=== PATIENT | female | born 1995 | race Caucasian/White ===

== ENCOUNTER 2018-05-20 09:14 | Emergency (ER) | payer BC ==
[~2018-05-20] VITALS: Ht 165.1 cm; Wt 136.4 kg
[2018-05-20 09:18] VITALS: BP 146/89; TEMP 100.4
[2018-05-20] MEDS ORDERED: DULERA1 ARO IH (09:22)
[2018-05-20] MEDS ORDERED: SINGULAIR 110 MG/TAB PO (09:22)
[2018-05-20 10:25] LABS: HEMATOCRIT 40.3 % (35.0-45.0); HEMOGLOBIN 13.1 g/dl (12.0-15.0); MEAN CELL VOLUME 86 fl (80.0-95.0); MEAN CORPUSCULAR HEMOGLOBIN 28 pg (26.0-32.0); MEAN CORPUSCULAR HGB CONC 33 g/dl (33.0-37.0); PLATELET COUNT 192 K/mm3 (130-400); RED BLOOD COUNT 4.68 M/mm3 (4.10-5.30); REDCELL DISTRIBUTION WIDTH-CV 12.7 % (11.5-14.5)
[2018-05-20 10:40] LABS: ALBUMIN 3.8 gm/dL (3.5-5.0); BILIRUBIN,TOTAL 0.7 mg/dL (0.0-1.0); CALCIUM 8.7 mg/dL (8.4-10.2); CREATININE, serum 0.82 mg/dL (0.52-1.25); POTASSIUM 3.7 mmol/L (3.4-5.0); TOTAL PROTEIN 7.2 gm/dL (6.4-8.2); URIC ACID 5.4 mg/dL (2.5-6.2)
[2018-05-20 10:52] LABS: C-REACTIVE PROTEIN 18.6 mg/dL (0.0-0.9)
[2018-05-20 11:30] LABS: BAND 9 % (0-10); LYMPHOCYTE 6 % (20.0-51.0); MYELOCYTE 1 % (0-0); NEUTROPHILS 76 % (42.0-75.2)
[2018-05-20 11:31] LABS: PLATELET ESTIMATE NORMAL (NORMAL)
[2018-05-20 12:00] LABS: ERYTHROCYTE SEDIMENTATION RATE 15 mm/hr (0-20)
[2018-05-20] MEDS ORDERED: CEPHALEXIN500 M1 PO (12:28)
[2018-05-20] MEDS ORDERED: DOXYCYCLINE 10100 MG PO (12:28)
[2018-05-20 12:38] VITALS: PULSE 99
== END 2018-05-20 12:38 | disposition home or self-care (01) ==
LOC: COL.ER 09:14
PROVIDERS: Nurse Practitioner
DX: M25.471 Effusion, right ankle (principal); L03.115 Cellulitis of right lower limb; J45.909 Unspecified asthma, uncomplicated; Z87.2 Personal history of diseases of the skin and subcutaneous tissue

== ENCOUNTER 2018-05-28 11:38 | Inpatient (IN) | payer BC ==
[~2018-05-28] VITALS: Ht 165.1 cm; Wt 135.3 kg
[~2018-05-28 11:38] MED LIST: CEPHALEXIN500 M1 PO; DOXYCYCLINE 10100 MG PO; DULERA1 ARO IH; SINGULAIR 110 MG/TAB PO
[2018-05-28] MEDS ORDERED: MOBIC15 MG PO (12:28)
[2018-05-28] MEDS ORDERED: NORCO 325 MG-51 TAB PO (12:32)
[2018-05-28 13:33] LABS: BASO % 0.5 % (0.0-2.0); EOS # 0.1 (0.0-0.7); EOS % 0.7 % (0-4.0); GRAN # 5.1 (1.4-6.5); GRAN % 67.2 % (42.2-75.2); HEMATOCRIT 38.3 % (35.0-45.0); HEMOGLOBIN 12.3 g/dl (12.0-15.0); LYMPH # 1.8 (1.2-3.4); LYMPH % 23.6 % (20.0-51.0); MEAN CELL VOLUME 87 fl (80.0-95.0); MEAN CORPUSCULAR HEMOGLOBIN 28 pg (26.0-32.0); MEAN CORPUSCULAR HGB CONC 32 g/dl (33.0-37.0); MEAN PLATELET VOLUME 11.5 fl (7.4-10.4); MONO # 0.6 (0.1-0.6); MONO % 7.6 % (1.7-9.3); PLATELET COUNT 291 K/mm3 (130-400); RED BLOOD COUNT 4.41 M/mm3 (4.10-5.30); REDCELL DISTRIBUTION WIDTH-CV 11.9 % (11.5-14.5)
[2018-05-28 13:42] LABS: ALBUMIN 3.9 gm/dL (3.5-5.0); BILIRUBIN,TOTAL 0.4 mg/dL (0.0-1.0); CALCIUM 9.4 mg/dL (8.4-10.2); CREATININE, serum 0.75 mg/dL (0.52-1.25); POTASSIUM 4.1 mmol/L (3.4-5.0); TOTAL PROTEIN 7.6 gm/dL (6.4-8.2)
[2018-05-28 14:32] VITALS: BP 148/80; PULSE 72; TEMP 99.3
[2018-05-28 17:02] VITALS: BP 141/81; PULSE 89; TEMP 98.5
[2018-05-28 23:32] VITALS: BP 120/48; PULSE 86; TEMP 98.8
[2018-05-29 05:30] VITALS: BP 104/47; PULSE 67; TEMP 97.6
[2018-05-29 07:25] VITALS: BP 149/83; PULSE 68; TEMP 98.4
[2018-05-29 12:27] VITALS: BP 134/74; PULSE 79; TEMP 98.1
[2018-05-29 16:06] VITALS: BP 133/75; PULSE 85; TEMP 97.7
[2018-05-29 20:00] VITALS: BP 140/80; PULSE 88; TEMP 98.8
[2018-05-30] VITALS: BP 139/78; PULSE 84; TEMP 98.7
[2018-05-30 04:00] VITALS: BP 123/70; PULSE 66; TEMP 97.7
[2018-05-30 08:25] VITALS: BP 145/79; PULSE 90; TEMP 98.1
[2018-05-30] MEDS ORDERED: TRIAMCINOLONE AC0.13 TOP (11:29)
[2018-05-30] MEDS ORDERED: BACTRIM DS 8001 TAB PO (11:30)
[2018-05-30] MEDS ORDERED: CLEOCIN HCL300 MG PO (11:30)
[2018-05-30 12:26] VITALS: BP 135/70; PULSE 84; TEMP 97.1
== END 2018-05-30 17:05 | disposition home or self-care (01) | DRG 603 ==
LOC: SURG 11:38
PROVIDERS: Physician Assistant
DX: L03.115 Cellulitis of right lower limb (principal); J45.909 Unspecified asthma, uncomplicated; L40.0 Psoriasis vulgaris
CPT/HCPCS: J0696; J1650; J3370; J7040; J7050

== ENCOUNTER 2019-05-30 14:22 | Inpatient (IN) | payer BC ==
[~2019-05-30] VITALS: Ht 167.6 cm; Wt 148.5 kg
[~2019-05-30 14:22] MED LIST changes: +BACTRIM DS 8001 TAB PO; +CLEOCIN HCL300 MG PO; +DULERA1 AR1 IH; -DULERA1 ARO IH; +MOBIC15 MG PO; +NORCO 325 MG-51 TAB PO; +TRIAMCINOLONE AC0.13 TOP
[2019-05-30 16:04] LABS: HEMATOCRIT 40.6 % (37.0-47.0); HEMOGLOBIN 13.4 g/dl (12.5-16.0); MEAN CELL VOLUME 87 fl (80.0-100.0); MEAN CORPUSCULAR HEMOGLOBIN 29 pg (27.0-31.0); MEAN CORPUSCULAR HGB CONC 33 g/dl (33.0-37.0); MEAN PLATELET VOLUME 12.7 fl (7.4-10.4); PLATELET COUNT 164 K/mm3 (130-400); RED BLOOD COUNT 4.69 M/mm3 (4.10-5.30); REDCELL DISTRIBUTION WIDTH-CV 12.9 % (11.5-14.5)
[2019-05-30 16:19] LABS: ALBUMIN 4.1 gm/dL (3.5-5.0); BILIRUBIN,TOTAL 0.5 mg/dL (0.0-1.0); CALCIUM 8.9 mg/dL (8.4-10.2); CREATININE, serum 0.8 (0.52-1.25); POTASSIUM 3.2 mmol/L (3.4-5.0); TOTAL PROTEIN 7.5 gm/dL (6.4-8.2)
[2019-05-30 16:37] LABS: BAND 16 % (0-10); LYMPHOCYTE 9 % (20.0-51.0); NEUTROPHILS 70 % (42.0-75.2)
[2019-05-30 16:39] LABS: PLATELET ESTIMATE NORMAL (NORMAL)
[2019-05-30 16:52] LABS: C-REACTIVE PROTEIN 33.1 mg/dL (0.0-0.9)
[2019-05-30 17:10] LABS: ERYTHROCYTE SEDIMENTATION RATE 37 mm/hr (0-20)
[2019-05-30] MEDS ORDERED: PROAIR HFA0.09 MG/AC IH (17:23)
[2019-05-30 17:46] VITALS: BP 120/57; PULSE 87; TEMP 99
[2019-05-30 19:02] VITALS: BP 118/57; PULSE 96; TEMP 99
--- NOTE | 2019-05-30 19:13 | NUR ---
Admission assessment completed, alert/oriented, vital signs stable, reports mild right leg pain, redness is outline for monitoring, Vanco infusing, IVF infusing, notified hospitalist of arrival, meds/allergies/pharmacy reviewed, mother present, denies other needs at this time
--- NOTE | 2019-05-30 20:30 | NUR ---
Initial shift assessment done- denies pain, RLE with redness, warmth, edema- redness is marked- lots of friends visiting- VSS, IV fluids of NS at 125cc/hr
[2019-05-31] VITALS (7 sets, daily range): BP systolic 115–143; BP diastolic 51–74; PULSE 87–105; TEMP 97.9–101.5
--- NOTE | 2019-05-31 07:00 | NUR ---
Did sleep fair during the night- no change to the right lower leg-remains red/warm,edematous. Did have temp 101.5-tylenol was given, down to 100.6
--- NOTE | 2019-05-31 08:07 | NUR ---
Pt alert and oriented. Pt rates pain 6/10 in RLE and headache and ears ache. Pt pain managed with PRN Tylenol. Pt IV in left hand patent no redness or infiltration noted. Pt remains on abx and fluids as ordered. Pt RLE remains reddned and edematous but does not seem to be increasing per intitial markings. Pt has call light in reach.
--- NOTE | 2019-05-31 10:00 | NUR ---
PT TOOK OWN HOME MED @ 1000
--- NOTE | 2019-05-31 11:32 | NUR ---
Family was present. I visited with the patient and family, provided spiritual care, and prayed with them.
[2019-05-31 11:57] LABS: MEAN CELL VOLUME 87 fl (80.0-100.0); MEAN CORPUSCULAR HGB CONC 33 g/dl (33.0-37.0); MEAN PLATELET VOLUME 12.7 fl (7.4-10.4); PLATELET COUNT 159 K/mm3 (130-400); RED BLOOD COUNT 3.98 M/mm3 (4.10-5.30); REDCELL DISTRIBUTION WIDTH-CV 13.2 % (11.5-14.5)
[2019-05-31 12:08] LABS: CALCIUM 8.2 mg/dL (8.4-10.2); CREATININE, serum 0.62 (0.52-1.25); HEMATOCRIT 34.8 % (37.0-47.0); HEMOGLOBIN 11.3 g/dl (12.5-16.0); MEAN CORPUSCULAR HEMOGLOBIN 28 pg (27.0-31.0); POTASSIUM 3.7 mmol/L (3.4-5.0)
[2019-05-31 12:25] LABS: BAND 4 % (0-10); LYMPHOCYTE 19 % (20.0-51.0); NEUTROPHILS 65 % (42.0-75.2); PLATELET ESTIMATE NORMAL (NORMAL)
--- NOTE | 2019-05-31 14:18 | NUR ---
Plan: TO return home with Roommate as care support and Mother Romi as EMR contact. DPOA is also mom. Assess: SW's met with patient at bedside. Patient gave permission to talk infront of guest in room. Patient reports that she does not have a PCP but uses [facility] and Dr. Evans. Patient reports a planned follow-up. Patient obtained medications from [facility] without issues. Patient reports that use of Nebulizer both inhaler and machine as PRN. Patient denies having any other DME. Patient reports that she is able to transport herself generally but mother will transport home. Patient denies having any care concerns at this time. Action: No addtional needs are identifed. SW educated community resources available to her. Nothing follows.
--- NOTE | 2019-05-31 16:23 | NUR ---
Pt pain managed with PRN Motrin and Tylenol. RLE remains reddened and edema noted. Pt eating and getting up to bathroom on her own at this time. Pt has call light in reach and IV patent with no redness or infiltration. Pt denies needs at this time. Pt has family and friends in to see her this afternoon.
--- NOTE | 2019-05-31 19:10 | NUR ---
Pt report given to Priscila RICHARDSON
--- NOTE | 2019-05-31 21:32 | NUR ---
PT IN BED WITH HOB AT 45 DEGREE ANGLE, A/O X4, C/O PAIN IN RLE ABOUT 6/10 THAT IS SHARP. RLE IS RED, SWOLLEN, WARM TO TOUCH, AND TENDER TO TOUCH. NO CHANGE IN MARKING ON RLE. PT GIVEN MOTRIN FOR PAIN REQUESTED. NO OTHER NEEDS CALL LIGHT WITHIN REACH.
[2019-06-01 03:54] VITALS: BP 127/57; PULSE 87; TEMP 98.5
--- NOTE | 2019-06-01 05:22 | NUR ---
UNEVENTFUL NIGHT FOR PT. PT HAS BEEN RESTING/SLEEPING AND EASILY AWAKENS. PT DENIED ANY PAIN OR DISCOMFORT THROUGHOUT THE NIGHT. PT HAS NO NEEDS AND CALL LIGHT WITHIN REACH.
[2019-06-01 08:01] VITALS: BP 141/67; PULSE 99; TEMP 98
[2019-06-01 10:16] LABS: BASO % 0.5 % (0.0-2.0); EOS % 0.5 % (0-4.0); GRAN # 4.4 (1.4-6.5); HEMOGLOBIN 11.2 g/dl (12.5-16.0); LYMPH # 1.5 (1.2-3.4); MEAN CELL VOLUME 88 fl (80.0-100.0); MEAN CORPUSCULAR HEMOGLOBIN 28 pg (27.0-31.0); MEAN CORPUSCULAR HGB CONC 32 g/dl (33.0-37.0); MEAN PLATELET VOLUME 12.4 fl (7.4-10.4); MONO # 0.4 (0.1-0.6); MONO % 6.8 % (1.7-9.3); PLATELET COUNT 181 K/mm3 (130-400); RED BLOOD COUNT 3.96 M/mm3 (4.10-5.30); REDCELL DISTRIBUTION WIDTH-CV 13.3 % (11.5-14.5)
[2019-06-01 10:19] LABS: HEMATOCRIT 34.9 % (37.0-47.0)
--- NOTE | 2019-06-01 10:32 | NUR ---
Pt resting in bed with mom at bedside. Pt RLE remains reddened but looks to have decreased some today but remains 3+ edema. Pt pain managed with PRN Motrin. Pt eating and drinking without issue. Pt has call light in reach and denies needs at this time.
[2019-06-01 10:34] LABS: CALCIUM 8.7 mg/dL (8.4-10.2); CREATININE, serum 0.67 (0.52-1.25); POTASSIUM 3.6 mmol/L (3.4-5.0)
[2019-06-01 12:19] VITALS: BP 153/76; PULSE 95; TEMP 99.3
--- NOTE | 2019-06-01 15:44 | NUR ---
Pt stable this afternoon. Pt has pain in RLE rated at 3/10 this afternoon. Pt has mom at bedside. Pt RLE remains red,warm, and tender to touch but redness is decreasing. Pt has call light in reach. Pt also able to take a shower this afternoon. Pt denies further needs at this time.
[2019-06-01 18:05] VITALS: BP 142/97; PULSE 99; TEMP 98.9
--- NOTE | 2019-06-01 19:10 | NUR ---
Pt report received from Keshia. Pt resting in bed with visitor at bedside. Dinner tray came at this time. Let assessed with off going nurse. Pt reports pain a 3/10. No requests at this time.
--- NOTE | 2019-06-01 19:19 | NUR ---
Pt report given to Lelo RICHARDSON.
[2019-06-01 20:33] VITALS: BP 142/71; PULSE 103; TEMP 100.4
[2019-06-01 22:47] VITALS: TEMP 99.5
[2019-06-02 00:30] VITALS: BP 113/49; PULSE 95; TEMP 98.2
[2019-06-02 03:45] VITALS: BP 133/74; PULSE 83; TEMP 98.3
--- NOTE | 2019-06-02 07:00 | NUR ---
Report received from Fannie Lind. Pt in bed resting, feeling well, will continue to monitor.
--- NOTE | 2019-06-02 07:15 | NUR ---
Report provided to Cynthia. Pt resting in bed at this time. Legs assessed.
[2019-06-02 07:29] VITALS: BP 137/85; PULSE 102; TEMP 99.1
--- NOTE | 2019-06-02 08:00 | NUR ---
Assessment charted. Pt RLE is reddenned, warm and tender, pt states the foot used to be similar color and warmth but has improved greatly. pt states pain is completely gone in RLE. IV went bad last night and does not want a new IV unless advised by doctor. will await hospitalist rounding. Will continue to monitor.
[2019-06-02 12:24] VITALS: BP 148/80; PULSE 98; TEMP 100.4
[2019-06-02 16:12] VITALS: BP 155/74; PULSE 95; TEMP 100.3
--- NOTE | 2019-06-02 18:33 | NUR ---
Pt doing well. Resting in bed, denies needs, will give bedside shift report to nightshift nurse who will resume care.
[2019-06-02 19:40] VITALS: BP 108/46; PULSE 100; TEMP 98
[2019-06-03 03:54] VITALS: BP 105/55; PULSE 97; TEMP 100.7
--- NOTE | 2019-06-03 04:10 | NUR ---
Patient has been resting well. Denies pain. Had her keep her leg elevated on pillows to help with edema. She has a slight temp at 100.7, she had a few today that have been in the same range. Tylenol given. There is also a couple areas to the back of her right calf that have become dark red almost purple in color. Notified A Nikolas SIMPSONN. No other changes at this time. Call light within reach.
[2019-06-03 07:18] LABS: BASO % 0.4 % (0.0-2.0); EOS % 0.2 % (0-4.0); GRAN # 5.1 (1.4-6.5); GRAN % 59.8 % (42.2-75.2); HEMOGLOBIN 11.6 g/dl (12.5-16.0); LYMPH # 2.4 (1.2-3.4); LYMPH % 28.1 % (20.0-51.0); MEAN CELL VOLUME 87 fl (80.0-100.0); MEAN CORPUSCULAR HEMOGLOBIN 28 pg (27.0-31.0); MEAN CORPUSCULAR HGB CONC 32 g/dl (33.0-37.0); MEAN PLATELET VOLUME 11.7 fl (7.4-10.4); MONO # 0.9 (0.1-0.6); MONO % 10.8 % (1.7-9.3); PLATELET COUNT 256 K/mm3 (130-400); RED BLOOD COUNT 4.13 M/mm3 (4.10-5.30)
[2019-06-03 07:27] LABS: HEMATOCRIT 35.8 % (37.0-47.0)
[2019-06-03 07:32] LABS: CALCIUM 8.8 mg/dL (8.4-10.2); CREATININE, serum 0.64 (0.52-1.25); POTASSIUM 3.7 mmol/L (3.4-5.0)
[2019-06-03 08:02] VITALS: BP 139/73; PULSE 92; TEMP 98.2
[2019-06-03 11:00] VITALS: BP 135/73; PULSE 90; TEMP 98.1
--- NOTE | 2019-06-03 11:05 | NUR ---
Pt assessment completed and charted. Medication adminsitered per NOV. Pt A&O. Denies chest pain, dizziness, SOB, N/V, general pain. Per pt RLE has improved since last night. RLE noted to be red, mild edema some blistering, no open sores. Medial RLE noted to have redness that increased in color, per pt and report, became purple overnight. Pt voices no other concerns at this time. pt has no IV at this time, staff and AIV attempted to find site yesterday without success. Will discuss POC with hospitalist.
[2019-06-03] MEDS ORDERED: CEPHALEXIN500 M1 PO (12:38)
[2019-06-03] MEDS ORDERED: TYLENOL 325MG325 MG PO (12:39)
--- NOTE | 2019-06-03 14:30 | NUR ---
Pt discharge instructions discussed and reviewed with patient who verbalized understanding. No other concerns at this time. No IV to dc. Pt escorted out ambulatory by raeann Frederick.
== END 2019-06-03 14:30 | disposition home or self-care (01) | DRG 872 ==
LOC: COL.ER 14:22 → MEDICAL 15:07
PROVIDERS: Emergency Medicine; Physician Assistant; ADMIT Student in an Organized Health Care Education/Training Program
DX: A41.9 Sepsis, unspecified organism (principal); L03.115 Cellulitis of right lower limb; I87.2 Venous insufficiency (chronic) (peripheral); R03.0 Elevated blood-pressure reading, without diagnosis of hypertension; J45.909 Unspecified asthma, uncomplicated; L40.9 Psoriasis, unspecified
CPT/HCPCS: 99232-AI; 99233-AI; 99239; A4216; J0696; J1650; J3370; J7030; J7050

== ENCOUNTER 2019-07-22 12:10 | Inpatient (IN) | payer BC ==
[~2019-07-22] VITALS: Ht 167.6 cm; Wt 128.7 kg
[~2019-07-22 12:10] MED LIST changes: +PROAIR HFA0.09 MG/AC IH; +TYLENOL 325MG325 MG PO
[2019-07-22] MEDS ORDERED: MOTRIN 200200 MG/TAB PO (15:17)
[2019-07-22] MEDS ORDERED: HCTZ 25MG TAB25 MG PO (15:19)
--- NOTE | 2019-07-22 16:59 | NUR ---
Pt arrived to room 319 from ED. PICC to right upper arm placed by FRANK Robles. Pt is awake and A/Ox4, sitting up in bed. Cellulitis to LLE noted. Pt oriented to room and to staff, expressed understanding. Meds/allergies/pharm reviewed. Family at bedside.
[2019-07-22 17:10] VITALS: BP 116/58; PULSE 102; TEMP 99.6
[2019-07-22 17:13] VITALS: BP 116/58; PULSE 105; TEMP 99.2
--- NOTE | 2019-07-22 18:37 | NUR ---
Pt requested PRN tylenol for "feeling like her fever is coming back." Temp 99.1 orally at this time.
[2019-07-22 18:38] VITALS: TEMP 99.1
--- NOTE | 2019-07-22 20:00 | NUR ---
Report received. Assumed care for nutrition and dietetics instructor. A&Ox3. Assessment complete. Noted to have left lower extremity with redness, swelling, and warmth. increased in size from previous marking-increased area marked. Rating pain 3/10 to that area-described as ache with intermittent sharpness. Denies need for intervention. Denies nausea. Provided with pillow to elevate extremity. PICC line to right upper arm-NS@125ml/hr. Mother at bedside. Denies needs. Call light in reach. Bed in low/wheels locked. WIll monitor.
[2019-07-22 20:29] VITALS: BP 129/66; PULSE 110; TEMP 102.8
[2019-07-22 23:54] VITALS: BP 128/58; PULSE 105; TEMP 99.7
[2019-07-23 05:02] VITALS: BP 120/64; PULSE 96; TEMP 98.8
[2019-07-23 06:26] LABS: HEMATOCRIT 38.6 % (37.0-47.0); HEMOGLOBIN 12.2 g/dl (12.5-16.0); MEAN CELL VOLUME 87 fl (80.0-100.0); MEAN CORPUSCULAR HEMOGLOBIN 28 pg (27.0-31.0); MEAN CORPUSCULAR HGB CONC 32 g/dl (33.0-37.0); MEAN PLATELET VOLUME 12.8 fl (7.4-10.4); PLATELET COUNT 148 K/mm3 (130-400); RED BLOOD COUNT 4.44 M/mm3 (4.10-5.30); REDCELL DISTRIBUTION WIDTH-CV 13.6 % (11.5-14.5)
[2019-07-23 06:38] LABS: ALBUMIN 3.5 gm/dL (3.5-5.0); BILIRUBIN,TOTAL 0.6 mg/dL (0.0-1.0); CALCIUM 8.2 mg/dL (8.4-10.2); CREATININE, serum 0.63 (0.52-1.25); TOTAL PROTEIN 6.5 gm/dL (6.4-8.2)
[2019-07-23 06:59] LABS: POTASSIUM 2.8 mmol/L (3.4-5.0)
--- NOTE | 2019-07-23 07:00 | NUR ---
Bedside shift report received from DEBRA Spencer. pT in bed resting, reviewed line drawing on legs. Per night shift manager it is improving. Pt feeling well, resting in room with mom at bedside, will continue to monitor.
[2019-07-23 07:06] LABS: BAND 22 % (0-10); LYMPHOCYTE 14 % (20.0-51.0); NEUTROPHILS 64 % (42.0-75.2)
[2019-07-23 07:07] LABS: PLATELET ESTIMATE NORMAL (NORMAL)
[2019-07-23 08:17] VITALS: BP 134/67; PULSE 107; TEMP 101.6
--- NOTE | 2019-07-23 08:30 | NUR ---
Assessment charted, doing well, c/o chills and feelign cold. VS catpured, pt is febrile, tylenol and motrin provided. PRN pain meds given for pain at 5/10 to LLE. PICC to TAYE. Denies other needs, will continue to monitor.
--- NOTE | 2019-07-23 08:58 | NUR ---
ELBERT met with the patient and the patient's mother, Wendi (ph#[phone]), to discuss discharge plan. The patient is from [place], but lives in [place] with a roommate during the school year. 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 ELBERT contacted and notified Юлия at [employer]'s Office of Student Life of the patient's hospitalization. The patient reports independence with ADLs and does not have any DME. She receives primary care at [facility] and she obtains her medications at [facility]. She reports no difficulties obtaining her meds. The patient's next-of-kin is her mother. The patient plans to return home with her roommate upon discharge. No additional needs at this time.
[2019-07-23 11:02] VITALS: BP 125/69; PULSE 102; TEMP 99.9
--- NOTE | 2019-07-23 11:22 | NUR ---
Vancomycin Initial Dosing Pharmacy Note Ordering provider: Jac Jiang MD Indication/duration: CELLULITIS Relevant comorbidities: LABS: 125KG SCR 0.6 Recommendation: 2 GM Q8H Loading dose: 2 grams Maintenance dose: Trough goal: 10-15 ug/mL
--- NOTE | 2019-07-23 12:04 | NUR ---
Initial visit; Patient thanked Oracle Technical Architect for looking in on her and offering God's blessings.
[2019-07-23 15:57] VITALS: BP 134/74; PULSE 94; TEMP 98.8
--- NOTE | 2019-07-23 18:21 | NUR ---
Pt doing well. talked with Ca today and sent pictures to him with her permission. She is feeling well, afebrile since this afternoon. Denies needs, up in shower now with family at bedside. Will give bedside shift report to nightshift nurse who will resume care.
[2019-07-23 19:41] VITALS: BP 131/68; PULSE 106; TEMP 98.9
--- NOTE | 2019-07-23 20:15 | NUR ---
Patient assessed at this time. Alert and oriented x 4, and able to make needs known. Reported level 7 pain to LLE, described as burning/tight. Given PRN Ultram for pain as requested. Double lumen PICC to RUE. Potassium infusing per protocol. Vanc started per orders. Dressing to area is CDI. LS CTA in upper lobes, diminished in lower lobes. HRR. Capillary refill less than 3 seconds. Non-tenting skin turgor. BSAx4. Abdomen soft and non-tender. 2+ edema BLE. LLE with redness/warmth/pain. Remains in the markings as this time. Marking placed around very red/blister like area to left medial ankle. Cracks to feet. Voices no questions, needs, or concerns at this time. Resting in bed watching TV at this time. Call light is within reach.
--- NOTE | 2019-07-23 22:00 | NUR ---
Patient requested PRN pain medication for LLE. Pain rated as a 7. Given PRN Roxicodone. Also complaining of chills. Temp 99.9. Given PRN Motrin. Voices no other questions, needs, or concerns at this time. Call light is within reach.
[2019-07-23 23:37] VITALS: BP 130/67; PULSE 108; TEMP 97.6
[2019-07-24 03:54] VITALS: BP 135/64; PULSE 105; TEMP 98.6
[2019-07-24 06:00] LABS: HEMOGLOBIN 10.9 g/dl (12.5-16.0); MEAN CELL VOLUME 87 fl (80.0-100.0); MEAN CORPUSCULAR HEMOGLOBIN 27 pg (27.0-31.0); MEAN CORPUSCULAR HGB CONC 31 g/dl (33.0-37.0); MEAN PLATELET VOLUME 12.7 fl (7.4-10.4); PLATELET COUNT 136 K/mm3 (130-400)
--- NOTE | 2019-07-24 06:00 | NUR ---
Patient has denied needing any further pain medication this shift. Continues on IV antibiotics via PICC to RUE per orders. LLE continues to be red and warm to touch. Staying within drawn border. Voices no questions, needs, or concerns at this time. Resting in bed with call light within reach.
[2019-07-24 06:01] LABS: HEMATOCRIT 34.9 % (37.0-47.0)
[2019-07-24 06:14] LABS: CALCIUM 8.3 mg/dL (8.4-10.2); CREATININE, serum 0.61 (0.52-1.25); POTASSIUM 3.4 mmol/L (3.4-5.0)
[2019-07-24 06:28] LABS: C-REACTIVE PROTEIN 26.1 mg/dL (0.0-0.9)
[2019-07-24 07:48] VITALS: BP 111/63; PULSE 106; TEMP 98.5
[2019-07-24 07:48] LABS: BAND 17 % (0-10); LYMPHOCYTE 16 % (20.0-51.0); NEUTROPHILS 56 % (42.0-75.2); PLATELET ESTIMATE NORMAL (NORMAL)
--- NOTE | 2019-07-24 10:32 | NUR ---
Pt awake and alert upon entry, family in room, pain medications asked for and were given, no other complaints at this time, shift assessments complete, left leg assessed redness still within the marked area, left Pt call light in reach, bed in lowest position.
[2019-07-24 11:53] VITALS: BP 114/66; PULSE 106; TEMP 99.6
[2019-07-24 15:45] VITALS: BP 129/69; PULSE 101; TEMP 100.9
--- NOTE | 2019-07-24 18:23 | NUR ---
Pt resitng in the room today, has some C/O pain and medications were given for relief, left lower leg cellulitis has remained in the previously marked area, Vs have remained stable.
[2019-07-24 19:19] VITALS: BP 131/74; PULSE 92; TEMP 98.5
--- NOTE | 2019-07-24 19:45 | NUR ---
Patient assessed at this time. Alert and oriented x 4, and able to make needs known. Double lumen PICC to RUE. Both flush and have good blood return. Vancomycin trough obtained per protocol. Reports level 4 pain to LLE, described as burning. Given PRN Roxicodone as requested for pain. Denies SOB and dyspnea. LS CTA in upper lobes, diminished in lower lobes. Respirations even and unlabored. HRR. Capillary refill less than 3 seconds. Non-tenting skin turgor. BSAx4. Abdomen soft and non-tender. 3+ edema BLE. Cracks to bilateral heels. Voices no questions, needs, or concerns at this time. Resting in bed watching TV. Call light is within reach.
--- NOTE | 2019-07-24 20:25 | NUR ---
Vanc trouch back 10.08. Started Vancomycin per orders. Reports Roxicodone was effective, and denies pain at this time. In bed watching TV with call light within reach.
[2019-07-24 23:17] VITALS: BP 133/57; PULSE 85; TEMP 98.5
--- NOTE | 2019-07-25 03:40 | NUR ---
Patient requesting PRN Roxicodone for pain to LLE and given as requested. Voices no other questions, needs, or concerns at this time. Resting in bed with call light within reach.
[2019-07-25 03:56] VITALS: BP 118/69; PULSE 102
[2019-07-25 06:00] LABS: BASO % 0.3 % (0.0-2.0); EOS # 0.1 (0.0-0.7); EOS % 0.9 % (0-4.0); GRAN # 4.3 (1.4-6.5); GRAN % 61.7 % (42.2-75.2); HEMOGLOBIN 10.3 g/dl (12.5-16.0); LYMPH # 1.7 (1.2-3.4); LYMPH % 24.5 % (20.0-51.0); MEAN CELL VOLUME 89 fl (80.0-100.0); MEAN CORPUSCULAR HEMOGLOBIN 28 pg (27.0-31.0); MEAN CORPUSCULAR HGB CONC 32 g/dl (33.0-37.0); MEAN PLATELET VOLUME 12.5 fl (7.4-10.4); MONO # 0.9 (0.1-0.6); MONO % 12.2 % (1.7-9.3); PLATELET COUNT 151 K/mm3 (130-400); RED BLOOD COUNT 3.68 M/mm3 (4.10-5.30)
[2019-07-25 06:06] LABS: HEMATOCRIT 32.7 % (37.0-47.0)
--- NOTE | 2019-07-25 06:07 | NUR ---
Patient denies having pain and discomfort at this time. Voices no questions, needs, or concerns at this time. Resting in bed with call light within reach.
[2019-07-25 06:14] LABS: CALCIUM 8.4 mg/dL (8.4-10.2); CREATININE, serum 0.61 (0.52-1.25); POTASSIUM 3.8 mmol/L (3.4-5.0)
[2019-07-25 08:08] VITALS: BP 132/72; PULSE 94; TEMP 98.5
--- NOTE | 2019-07-25 08:08 | NUR ---
Pt awake and alert this morning, talkative, shift assessments complete, left Pt call light in reach, bed in lowest position.
[2019-07-25 11:32] VITALS: BP 124/86; PULSE 92; TEMP 98.3
[2019-07-25 16:23] VITALS: BP 125/62; PULSE 91; TEMP 98.4
--- NOTE | 2019-07-25 18:34 | NUR ---
Pt doing much better today, has litle pain and has not asked for pain medications today, VS have remained stable.
[2019-07-25 19:23] VITALS: BP 125/70; PULSE 104; TEMP 98.6
[2019-07-25 23:16] VITALS: BP 121/61; PULSE 99; TEMP 97.9
[2019-07-26 04:58] VITALS: BP 131/66; PULSE 100; TEMP 99.8
[2019-07-26 06:06] LABS: BASO % 0.4 % (0.0-2.0); EOS # 0.1 (0.0-0.7); EOS % 1.3 % (0-4.0); GRAN # 3.7 (1.4-6.5); HEMOGLOBIN 10.3 g/dl (12.5-16.0); LYMPH # 2.1 (1.2-3.4); LYMPH % 30.2 % (20.0-51.0); MEAN CELL VOLUME 87 fl (80.0-100.0); MEAN CORPUSCULAR HEMOGLOBIN 28 pg (27.0-31.0); MEAN CORPUSCULAR HGB CONC 32 g/dl (33.0-37.0); MEAN PLATELET VOLUME 11.8 fl (7.4-10.4); MONO # 0.9 (0.1-0.6); MONO % 12.8 % (1.7-9.3); PLATELET COUNT 191 K/mm3 (130-400); RED BLOOD COUNT 3.72 M/mm3 (4.10-5.30); REDCELL DISTRIBUTION WIDTH-CV 14.1 % (11.5-14.5)
[2019-07-26 06:13] LABS: HEMATOCRIT 32.5 % (37.0-47.0)
[2019-07-26 06:17] LABS: CALCIUM 8.6 mg/dL (8.4-10.2); CREATININE, serum 0.67 (0.52-1.25)
--- NOTE | 2019-07-26 06:50 | NUR ---
Pt has had an uneventful night. States she slept fair. LLE with 2+ edema and a large, fluid filled blister on inside lower leg just above ankle. There is a couple smaller blisters towards the outer lower edge of leg. PICC in upper right arm. Red line flushes well. Purple line would not flush. Bilat LE elevated on pillow and bottom of bed elevated. Call light in reach.
--- NOTE | 2019-07-26 07:00 | NUR ---
Report received from DEBRA Preito. PT in bed resting with eyes closed, will continue to monitor.
[2019-07-26 07:36] VITALS: BP 137/65; PULSE 98; TEMP 98.9
[2019-07-26] MEDS ORDERED: CEPHALEXIN500 M1 PO (11:37)
[2019-07-26] MEDS ORDERED: MONODOX100 PO (11:38)
--- NOTE | 2019-07-26 13:20 | NUR ---
Discharge teaching completed at this time. PT received discharge packet, discussed need to make f/u at [facility] withing 2 weeks, scripts sent to pharmacy. PICC removed per order, pt tolerated well, pressure held for 5 minutes. Pt left with all belongings, escorted out by medical staff, friend to drive home, criteria met.
== END 2019-07-26 12:55 | disposition home or self-care (01) | DRG 872 ==
LOC: COL.ER 12:10 → MEDICAL 13:32
PROVIDERS: Physician Assistant; ADMIT Student in an Organized Health Care Education/Training Program
PROC: 02HV33Z Insertion of Infusion Device into Superior Vena Cava, Percutaneous Approach (ICD-10-PCS; principal; 2019-07-22)
DX: A41.9 Sepsis, unspecified organism (principal); L03.116 Cellulitis of left lower limb; Z68.42 Body mass index [BMI] 45.0-49.9, adult; J45.909 Unspecified asthma, uncomplicated; I10 Essential (primary) hypertension; L40.9 Psoriasis, unspecified; E66.01 Morbid (severe) obesity due to excess calories; E87.6 Hypokalemia
CPT/HCPCS: 99222-AI; 99232-AI; 99233-AI; C1751; J0692; J0696; J1650; J3370; J3480; J7030; J7040

== ENCOUNTER 2021-09-14 08:46 | Inpatient (IN) | payer BC ==
[~2021-09-14] VITALS: Ht 167.6 cm; Wt 157.7 kg
[2021-09-14] VITALS (14 sets, daily range): BP systolic 116–149; BP diastolic 60–89; PULSE 94–129; TEMP 98.3–98.5
[~2021-09-14 08:46] MED LIST changes: +HCTZ 25MG TAB25 MG PO; +MONODOX100 PO; +MOTRIN 200200 MG/TAB PO
[2021-09-14] MEDS ORDERED: ALBUTEROL0.83 MG/ML IH (09:15)
[2021-09-14 10:18] LABS: BASO % 0.3 % (0.0-2.0); GRAN % 78.9 % (42.2-75.2); HEMATOCRIT 43.8 % (37.0-47.0); HEMOGLOBIN 13.8 g/dl (12.5-16.0); LYMPH # 0.9 K/mm3 (1.2-3.4); LYMPH % 13.3 % (20.0-51.0); MEAN CELL VOLUME 87 fl (80.0-100.0); MEAN CORPUSCULAR HEMOGLOBIN 27 pg (27-31); MEAN CORPUSCULAR HGB CONC 32 g/dl (33.0-37.0); MONO # 0.5 K/mm3 (0.1-0.6); MONO % 7.2 % (1.7-9.3); PLATELET COUNT 175 K/mm3 (130-400); RED BLOOD COUNT 5.06 M/mm3 (4.10-5.30); REDCELL DISTRIBUTION WIDTH-CV 13.3 % (11.5-14.5)
[2021-09-14 10:33] LABS: ALBUMIN 3.6 gm/dL (3.5-5.0); BILIRUBIN,TOTAL 0.6 mg/dL (0.2-1.2); C-REACTIVE PROTEIN 5.21 mg/dL (0.00-0.50); CALCIUM 8.5 mg/dL (8.4-10.2); CREATININE, serum 0.74 mg/dL (0.57-1.11); POTASSIUM 3.5 mmol/L (3.5-4.5); TOTAL PROTEIN 7.4 gm/dL (6.2-8.1)
--- NOTE | 2021-09-14 17:00 | NUR ---
Patient to room 302 from the ED by wheelchair. Nurse oriented the patient to location, room and call light. Patient A&Ox4. VSS. IV CDI. No further needs expressed. Call light within reach
--- NOTE | 2021-09-14 18:43 | NUR ---
Critical D-Dimer of 283 called to AISLINN Solis. New order will be put in for CT r/o PE. Information called to charge nurse, DEBRA Reyes.
--- NOTE | 2021-09-14 19:33 | NUR ---
PT DISCONNECTED FROM IVF @ THIS TIME R/T PREPARING TO GO DOWN TO XRAY, EXPLAINED TO PT. PT VERBALIZES UNDERSTANDING. 2L O2 ON VIA NC. XRAY NOTIFIED THAT PT IS ON OXYGEN ET HAS A PICC LINE.
[2021-09-14 22:46] LABS: CALCIUM 8.2 mg/dL (8.4-10.2); CREATININE, serum 0.64 mg/dL (0.57-1.11); MAGNESIUM 2.3 mg/dL (1.6-2.6); POTASSIUM 3.8 mmol/L (3.5-4.5)
[2021-09-15] VITALS (19 sets, daily range): BP systolic 119–141; BP diastolic 67–79; PULSE 77–113; TEMP 97.7–98.5
--- NOTE | 2021-09-15 04:11 | NUR ---
2029- NOTIFIED BY TELEMETRY THAT PT IS IN A-FIB WITH A HR OF 120-130s. PT IS SITTING IN BED WITH THIS NURSE ENTERS ROOM. O2 ON @ 2L. PT DENIES ANY PRIOR OF HISTORY OF AFIB. PT DENIES CHEST PAIN BUT STATES THAT SHE FEELS LIKE HER HEART IS RACING ET HAS INCREASED SHORTNESS OF BREATH. PT APPEARS CALM. HEART SOUNDS ARE TACHYCARDIC ET IRREGULAR. VITAL SIGNS RECORDED. O2 SATS ARE 85%. PT'S O2 INCREASED TO 4L, PT CONTINUES TO HAVE O2 SATS OF 87-89%. OXYGEN IS INCREASED TO 6L ET OXYGEN SATS ARE 89-93% Zach LECHUGA APRN NOTIFIED OF PT CONDITION, NEW ORDER RECEIVED FOR STAT EKG. RT IS CALLED ET IS UNAVAILABLE @ TIME, EKG DONE BY THIS NURSE, SHOWS AFIB RVR WITH RATE OF 129. Zach LECHUGA APRN NOTIFED, NEW ORDERS RECIEVED. 2214- BLOOD FOR LABS DRAWN FROM PT'S PICC IN RIGHT UPPER ARM. CARDIZEM BOLUS ET DRIP RECIEVED FROM COMMUNICATIONS TECHNICIAN ET ADMINISTERED INTO PICC LINE WITH IVF. Zach LECHUGA APRN IN ROOM ET HAS SPOKEN WITH PT. PT CONTINUES TO APPEAR CALM. RESPIRATIONS ARE UNLABORED BUT O2 SATS ARE 87-89% ON 6L NC. PT ASKED TO DEEP BREATHE WITH NO IMPROVEMENT. OXYGEN INCREASED TO 8L ON HI-FLOW NC. PT IS EDUCATED ON POSSIBLE SIDE EEFCTS OF CARDIZEM ET NOTIFYING STAFF OF ANY CHANGES IN SYMPTOMS. PT VERBALIZES UNDERSTANDING. PT USES SBA TO USE BSC, IS HAVING DIARRHEA ET IS ON HER MENSES. STOOLS ARE LIQUID ET BROWN. PT'S HEART RATE INCREASES ET OXYGEN SATS DECREASE WITH ANY ACTIVITY.
--- NOTE | 2021-09-15 04:27 | NUR ---
230- PT'S BLOOD PRESSURES REMAIN STABLE. PT IS RESTING QUIETLY IN BED. HR REMAINS 110-120s ET RHYTHM IS AFIB. Zach LECHUGA APRN NOTIFIED, NEW ORDER RECEIVED TO INCREASE RATE OF CARDIZEM DRIP FROM 5 ML/HR TO 10 ML/HR. RATE IS CHANGED ON IV PUMP. 2357- TELEMETRY NOTIFIES THIS NURSE THAT PT'S HR SHORTLY INCREASED TO 170s. PT HAS BEEN ASSISTED TO C ET BACK TO BED. CONTINUES TO HAVE DIARRHEA STOOLS. 7- TELEMETRY NOTIFIES THIS NURSE THAT PT'S HEART RHYTHM HAS CONVERTED TO SINUS TACHYCARDIA. Zach LECHUGA APRN NOTIFIED, NO NEW ORDERS @ THIS TIME.
[2021-09-15 07:32] LABS: BASO % 0.2 % (0.0-2.0); GRAN # 3.7 K/mm3 (1.4-6.5); GRAN % 66.5 % (42.2-75.2); HEMOGLOBIN 12.5 g/dl (12.5-16.0); LYMPH # 1.4 K/mm3 (1.2-3.4); LYMPH % 25.1 % (20.0-51.0); MEAN CELL VOLUME 87 fl (80.0-100.0); MEAN CORPUSCULAR HEMOGLOBIN 28 pg (27-31); MEAN CORPUSCULAR HGB CONC 32 g/dl (33.0-37.0); MEAN PLATELET VOLUME 12.9 fl (7.4-10.4); MONO # 0.4 K/mm3 (0.1-0.6); MONO % 7.7 % (1.7-9.3); PLATELET COUNT 154 K/mm3 (130-400); RED BLOOD COUNT 4.51 M/mm3 (4.10-5.30); REDCELL DISTRIBUTION WIDTH-CV 13.3 % (11.5-14.5)
[2021-09-15 07:38] LABS: ALBUMIN 3.2 gm/dL (3.5-5.0); BILIRUBIN,TOTAL 0.4 mg/dL (0.2-1.2); CALCIUM 8.3 mg/dL (8.4-10.2); CREATININE, serum 0.62 mg/dL (0.57-1.11); POTASSIUM 3.6 mmol/L (3.5-4.5); TOTAL PROTEIN 6.7 gm/dL (6.2-8.1)
--- NOTE | 2021-09-15 07:54 | NUR ---
Patient laying in bed, hourly VS being monitored while on cardizem drip at 10ml/hr. Patient A&Ox4 VSS 8L HF, no reported SOB. IV CDI, fluids infusing. Denies SOB, pain and discomfort. Droplet/contact precautions in place. No further needs expressed. Call light within reach
--- NOTE | 2021-09-15 08:00 | NUR ---
Patient sitting up in bed with the TV on. A&Ox4. VSS 9L HF NC, no reported SOB. IV CDI, fluids infusing. Denies pain and discomfort. Reports dyspnea with exertion. No further needs expressed. Droplet/contact precautions in place. Call light within reach
[2021-09-15 08:11] LABS: BILIRUBIN,DIRECT 0.2 mg/dL (0.0-0.5)
--- NOTE | 2021-09-15 08:30 | NUR ---
rEVIEWED YESTERDAY'S CHEST X-RAY FOR picc PLACEMENT. picc INTACT PATIENT'S RIGHT UPPER ARM. picc DRESSING CHANGED WITH STERILE TECHNIQUE WITH INSERTION SITE CLEANSED WITH cHLORApREP X1, CATHETER PULLED BACK TO 4 CM MARKING ON CATHETER, sTATlOCK, SKIN PREP, CHLORHEXIDINE IMPREGNATED DISC APPLIED, AND tEGADERM applied. No signs or symptoms of IV complications noted. No concerns voiced.
[2021-09-15 11:14] LABS: MAGNESIUM 2.1 mg/dL (1.6-2.6)
[2021-09-15 11:35] LABS: TSH w REFLEX 0.682 uIU/mL (0.350-4.940)
--- NOTE | 2021-09-15 14:29 | NUR ---
Instructor Modeling contacted patient by phone to complete initial intake as patient is in isolation for [facility]. Patient lives in [place] with her boyfriend, Jose Juan and roommate, Elizabeth. Patient states she does not have primary care established here in [place]. Patient had a primary care physician set up in her home town of [place], [place] but advised she had been going to [facility] while she was a student at [employer]. Patient has now graduated and works for [employer]. Patient obtains any needed medications from [facility]. Patient has a nebulizer and no other DME at home. Patient does not normally use oxygen but is currently requiring 9 liters. Patient is independent with ADLS and plans to return home upon discharge. Patient is not and has no children. Patient's parents, Wendi (ph#[phone]) and Hiram are her legal next of kin. Patient also has two siblings: Agnieszka and Ann Marie. Discharge Plan: Home, may need home oxygen
--- NOTE | 2021-09-15 17:50 | NUR ---
Patient sitting up in bed, on Airvo. No complaints SOB, pain or discomfort. Independent in the room. A&Ox4. VSS. IV CDI, fluids infusing. Droplet/contact precautions in place. No further needs expressed. Call light within reach
--- NOTE | 2021-09-15 21:37 | NUR ---
Patient assessed around 194. Alert and oriented x 4, and able to make needs known. Denies having pain and discomfort at this time. PICC to RUE. On oxygen at 8 L/min via NC. Denies SOB and dsypnea at rest, continues to have dyspnea with exertion. Using bedside commode to help decrease exertion. LS CTA in upper lobes, diminished in lower. 1+ edema BLE. Voices no questions, needs, or concens at this time. In bed with call light within reach.
[2021-09-16 04:16] VITALS: BP 133/70; PULSE 87; TEMP 98.1
--- NOTE | 2021-09-16 06:05 | NUR ---
Has denied pain and discomfort this shift. Continues on oxygen at 8 L/min via NC. Voices no questions, needs, or concerns at this time. In bed with call light within reach.
--- NOTE | 2021-09-16 08:30 | NUR ---
Pt reports that she is feeling okay today. Pt has no complaints of pain. She is independent in her room. Took breakfast tray to her, will complete full assessment after she eats. No other needs, or complaints, call light within reach
[2021-09-16 08:40] VITALS: BP 140/81; PULSE 84; TEMP 97.8
[2021-09-16 11:33] VITALS: BP 143/79; PULSE 82; TEMP 98.3
[2021-09-16 16:03] VITALS: BP 134/72; PULSE 70; TEMP 97.7
[2021-09-16 19:07] VITALS: BP 136/76; PULSE 55; TEMP 97.9
--- NOTE | 2021-09-16 21:00 | NUR ---
Initial shift assessment done-very pleasant, VSS, alert/oriented, states feeling much better, o2 at 5L/high flow, Up to bathroom on own now- steady on feet--will call if assistance needed. Tele on.
[2021-09-16 23:54] VITALS: BP 122/67; PULSE 70; TEMP 98.2
[2021-09-17 04:05] VITALS: BP 120/63; PULSE 60; TEMP 98.1
--- NOTE | 2021-09-17 05:54 | NUR ---
Quiet night-94% on 5L/nc, States did get some sleep last night, VSS
[2021-09-17 06:25] LABS: HEMATOCRIT 40.2 % (37.0-47.0); HEMOGLOBIN 12.8 g/dl (12.5-16.0); MEAN CELL VOLUME 87 fl (80.0-100.0); MEAN CORPUSCULAR HEMOGLOBIN 28 pg (27-31); MEAN CORPUSCULAR HGB CONC 32 g/dl (33.0-37.0); MEAN PLATELET VOLUME 12.4 fl (7.4-10.4); PLATELET COUNT 199 K/mm3 (130-400); RED BLOOD COUNT 4.65 M/mm3 (4.10-5.30); REDCELL DISTRIBUTION WIDTH-CV 13.2 % (11.5-14.5)
[2021-09-17 06:44] LABS: CALCIUM 8.6 mg/dL (8.4-10.2); CREATININE, serum 0.62 mg/dL (0.57-1.11)
[2021-09-17 07:13] LABS: LYMPHOCYTE 36 % (20.0-51.0); NEUTROPHILS 58 % (42.0-75.2); PLATELET ESTIMATE NORMAL (NORMAL)
--- NOTE | 2021-09-17 08:00 | NUR ---
Patient sitting up in bed in the dark. A&Ox4. VSS 5L HF O2, no reported SOB. Denies pain and discomfort. Droplet/contact precautions in place. No further needs expressed. Call light within reach
[2021-09-17 08:25] VITALS: BP 125/66; PULSE 60; TEMP 99.3
[2021-09-17 11:40] VITALS: BP 123/74; PULSE 77; TEMP 97.6
[2021-09-17 16:53] VITALS: BP 134/81; PULSE 76; TEMP 97.7
--- NOTE | 2021-09-17 17:34 | NUR ---
Patient had an uneventful day. A&Ox4. VSS 4L NC O2, no reported SOB. Denies pain and discomfort. Independent in the room. No further needs expressed. Call light within reach
[2021-09-17 19:39] VITALS: BP 110/69; PULSE 65; TEMP 98.5
--- NOTE | 2021-09-17 20:30 | NUR ---
Initial shift assessment done- VSS, o2 sats 94% on 3L/high flow, Up in room on own- steady on feet.Using IS every hour while awake. Tele on. Denies pain.
[2021-09-17 23:40] VITALS: BP 124/72; PULSE 65; TEMP 98
[2021-09-18 03:27] VITALS: BP 118/76; PULSE 61; TEMP 98.3
--- NOTE | 2021-09-18 05:27 | NUR ---
Quiet night, VSS, o2 at 3L/high flow with sats 94-95%. Slept fair.
--- NOTE | 2021-09-18 08:00 | NUR ---
Patient sitting up in bed watching TV. A&Ox4. VSS 3L NC O2, no reported SOB. IV CDI, security shift manager nurse expressed concerns over the PICC line being patent. Doctor notified and aware. Denies pain and discomfort. Independent in the room. Droplet/contact precautions in place. No further needs expressed. Call light within reach
[2021-09-18 08:24] VITALS: BP 116/70; PULSE 74; TEMP 97.8
[2021-09-18 11:14] VITALS: BP 123/55; PULSE 75; TEMP 97.7
[2021-09-18 16:00] VITALS: BP 115/62; PULSE 76; TEMP 97.9
--- NOTE | 2021-09-18 17:24 | NUR ---
Patient had an uneventful day. A&Ox4. VSS 2.5L NC O2, no reported SOB. PICC TAYE, CDI. Denies pain and discomfort. Independent in the room. Droplet/contact precautions in place. No further needs expressed. Call light within reach
[2021-09-18 19:25] VITALS: BP 134/67; PULSE 78; TEMP 98.3
--- NOTE | 2021-09-18 20:00 | NUR ---
PT UP IN RECLINER. DENIES NEEDS. HAS OXYGEN ON AT 2.5L/NC. RT ARM PICC WITH IV ANTIBIOTIC INFUSING TO PURPLE LINE WITHOUT PROBLEM, WAS ABLE TO GET BLOOD RETURN ON PURPLE LINE. INDEPENDENT IN ROOM.
[2021-09-18 23:52] VITALS: BP 114/63; PULSE 58; TEMP 98.4
[2021-09-19 04:23] VITALS: BP 125/74; PULSE 63; PULSE 636; TEMP 98
--- NOTE | 2021-09-19 06:00 | NUR ---
PT HAS BEEN ON ROOM AIR THIS SHIFT. DENIES NEEDS. IV ANTIBIOTIC INFUSING TO RT PICC PURPLE LUMEN WITHOUT PROBLEM. INDEPENDENT IN ROOM.
--- NOTE | 2021-09-19 07:55 | NUR ---
PT PLEASANT, AOX4, DENIES PAIN, DENIES N/V/D, MEDICATIONS GIVEN, ASSESSMENT PERFORMED, VITALS REVIEWED, NO OTHER NEEDS
[2021-09-19 08:00] VITALS: BP 112/68; PULSE 59; TEMP 97.9
[2021-09-19] MEDS ORDERED: ASPIRIN 81M81 MG/TA2 PO (09:17)
[2021-09-19] MEDS ORDERED: ZEBETA 5MG5 MG PO (09:17)
[2021-09-19] MEDS ORDERED: DECADRON6 MG PO (09:18)
[2021-09-19] MEDS ORDERED: OXYGEN (09:19)
[2021-09-19] MEDS ORDERED: OXYGEN NASAL.CANN (10:11)
--- NOTE | 2021-09-19 10:37 | NUR ---
An exercise oximetry was ordered. The patient qualified for 2 liters of oxygen. ELBERT contacted the patient to follow up. She is open to getting her oxygen from a local [employer] company. ELBERT contacted Sara at [facility]. Sara reports that they have oxygen at this time and are unable to fill new orders at this time. ELBERT attempted to contact [employer], but their voicemail says that they are closed. ELBERT contacted Marin at [facility]. Marin reports that they are able to fill orders. ELBERT faxed the patient's records to [facility]. Awaiting their review and delivery.
[2021-09-19 11:30] VITALS: BP 115/71; PULSE 76; TEMP 98.1
--- NOTE | 2021-09-19 14:59 | NUR ---
Sommer, at [facility], reports that they heard back from the patient's insurance and they will cover the oxygen. Sommer reports that they just have some additional forms that need signed by the physician, but that they can go ahead and deliver the oxygen. ELBERT updated the patient's RN. ELBERT received those forms via fax. The patient's PA signed the forms. ELBERT faxed them back to [facility]. No additional needs at this time.
--- NOTE | 2021-09-19 16:36 | NUR ---
pt escorted out via wheelchair, educated pt on o2 equipment, educated on discharge information, picc removed, no other questions or needs
== END 2021-09-19 16:37 | disposition home or self-care (01) | DRG 177 ==
LOC: COL.ER 08:46 → MEDICAL 10:53
PROVIDERS: Emergency Medicine; Internal Medicine; Nurse Practitioner Family; Physician Assistant; ADMIT Student in an Organized Health Care Education/Training Program
PROC: 02HV33Z Insertion of Infusion Device into Superior Vena Cava, Percutaneous Approach (ICD-10-PCS; principal; 2021-09-14)
PROC: XW043E5 Introduction of Remdesivir Anti-infective into Central Vein, Percutaneous Approach, New Technology Group 5 (ICD-10-PCS; 2021-09-14)
DX: U07.1 COVID-19 (principal); J96.01 Acute respiratory failure with hypoxia; Z68.43 Body mass index [BMI] 50.0-59.9, adult; I48.0 Paroxysmal atrial fibrillation; E66.01 Morbid (severe) obesity due to excess calories; J45.909 Unspecified asthma, uncomplicated; I10 Essential (primary) hypertension; I08.1 Rheumatic disorders of both mitral and tricuspid valves
CPT/HCPCS: 99222-AI; 99232-AI; 99233-AI; 99239; A9284; C1751; J0696; J1100; J1650; J7030; J7050; Q9967